=== PATIENT | male | born 1930 | race Asian ===

== ENCOUNTER 2017-05-31 16:18 | Inpatient (IN) | payer MEDICARE, OTHER ==
[~2017-05-31] VITALS: Ht 172.7 cm; Wt 67.5 kg
[~2017-05-31 16:18] MED LIST: AMLO-511 PO; DIVA500T35 PO; LISI-662 PO; MEMA5 PO; RISP1 PO
[2017-05-31 17:55] LABS: BASOPHILS % (AUTO) 0.7 % (0.0-2.0); EOSINOPHILS % (AUTO) 1.5 % (1.0-6.0); HEMATOCRIT 37.9 % (41-53); HEMOGLOBIN 12.7 g/dL (13.5-17.5); LYMPHOCYTES # (AUTO) 1.9 K/uL (1.0-4.8); LYMPHOCYTES % (AUTO) 29.5 % (22.0-44.0); MEAN CORPUSCULAR HEMOGLOBIN 30.2 pg (26.0-34.0); MEAN CORPUSCULAR HGB CONC 33.5 G/dL (31.0-37.0); MEAN CORPUSCULAR VOLUME 90 fL (80-100); MONOCYTES # (AUTO) 0.5 K/uL (0.1-1.0); MONOCYTES % (AUTO) 7.3 % (2.0-9.0); PLATELET COUNT (AUTO) 190 K/uL (150-450); RED CELL DISTRIBUTION WIDTH 15.2 % (11.5-14.5)
[2017-05-31 18:07] LABS: ALANINE AMINOTRANSFERASE 23 U/L (12-78); ALBUMIN 3.5 g/dL (3.4-5.0); ALKALINE PHOSPHATASE 95 U/L (46-116); ANION GAP 8 mmol/L (8-16); ASPARTATE AMINOTRANSFERASE 25 U/L (15-37); BILIRUBIN,TOTAL 1.5 mg/dL (0.1-1.0); CALCIUM, TOTAL 8.7 mg/dL (8.8-10.5); CARBON DIOXIDE 33 mmol/L (22-29); CHLORIDE 101 mmol/L (98-107); GLOMERULAR FILTR. RATE CALC 52 mL/min (>60); GLUCOSE,RANDOM 152 mg/dL (70-110); SODIUM SERUM 142 mmol/L (136-145); TOTAL PROTEIN, SERUM 7.8 g/dL (6.4-8.2); UREA NITROGEN, BLOOD 13 mg/dL (7-18)
[2017-05-31 18:08] LABS: POTASSIUM 2.9 mmol/L (3.5-5.1)
[2017-05-31 18:59] LABS: THYROID STIMULATING HORMONE 0.83 uIU/mL (0.36-3.74)
[2017-05-31 19:51] LABS: APPEARANCE,URINE CLEAR (CLEAR); BILIRUBIN,URINE NEGATIVE (NEGATIVE); GLUCOSE, URINE (UA) NEGATIVE (NEGATIVE); KETONES,URINE NEGATIVE (NEGATIVE); LEUKOCYTE ESTERASE ,URINE NEGATIVE (NEGATIVE); NITRATE,URINE NEGATIVE (NEGATIVE); OCCULT BLOOD,URINE NEGATIVE (NEGATIVE); PH,URINE 7.5 (5.0-8.0); PROTEIN,URINE SEE CONFIRM (NEGATIVE)
[2017-05-31 19:59] LABS: AMPHET/METH SCREEN,URINE NEGATIVE (NEGATIVE); BARBITURATE SCREEN, URINE NEGATIVE (NEGATIVE); BENZODIAZEPINES SCREEN,URINE NEGATIVE (NEGATIVE); CANNABINOID SCREEN,URINE NEGATIVE (NEGATIVE); COCAINE SCREEN,URINE NEGATIVE (NEGATIVE); METHADONE SCREEN, URINE NEGATIVE (NEGATIVE); OPIATE SCREEN,URINE NEGATIVE (NEGATIVE); PHENCYCLIDINE SCREEN,URINE NEGATIVE (NEGATIVE)
[2017-05-31 20:18] LABS: BACTERIA,URINE Few /HPF (None Seen); RBC,URINE 0-2 /HPF (0-2); SQUAMOUS EPITHELIAL CELL,UR Few /LPF (None Seen); SULFOSALICYLIC ACID,URINE 3+ (Negative)
[2017-05-31] MEDS ORDERED: POTASSIUM CHLORIDE 20 MEQ ER TABLET PO ONE (20:45)
[2017-05-31] MEDS ORDERED: CEPHALEXIN MONOHYDRATE 500 MG CAPSULE PO ONE (20:45)
[2017-05-31] MEDS ORDERED: CloNIDine HCL 0.1 MG TABLET PO ONE ×2 (21:00)
[2017-05-31 22:45] VITALS: BP 148/76
[2017-06-01] MEDS: DIVALPROEX SODIUM 500 MG DR TABLET PO SCH ×3 (00:45→20:42)
[2017-06-01] MEDS ORDERED: 0.9% SODIUM CHLORIDE 10 ML SYRINGE IVP PRN (01:00)
[2017-06-01] MEDS ORDERED: OxyCODONE HCL/ACETAMINOPHEN 5-325 MG TABLET PO PRN (01:00)
[2017-06-01] MEDS ORDERED: ONDANSETRON HCL 4 MG/2 ML VIAL IVP PRN (01:00)
[2017-06-01] MEDS ORDERED: SODIUM CHLORIDE 0.9% 500 ML IV ONE (02:01)
[2017-06-01] MEDS: DOCUSATE SODIUM 100 MG CAPSULE PO SCH ×3 (02:09→20:42)
[2017-06-01] MEDS: HEPARIN SODIUM,PORCINE 5,000 UNITS/ML VIAL SQ SCH ×3 (02:09→20:42)
[2017-06-01] MEDS: CefTRIAXone 1 GM/DEXTROSE 50 ML IV SCH (03:02)
[2017-06-01 04:42] VITALS: BP 159/73
[2017-06-01 07:45] VITALS: BP 165/69
[2017-06-01] MEDS: LISINOPRIL 20 MG TABLET PO SCH (08:29)
[2017-06-01] MEDS: PANTOPRAZOLE SODIUM 40 MG/VIAL IVP SCH (08:29)
[2017-06-01] MEDS ORDERED: AmLODIPine BESYLATE 5 MG TABLET PO SCH (09:00)
[2017-06-01 11:17] VITALS: BP 147/66
[2017-06-01 15:15] VITALS: BP 167/70
[2017-06-01 15:18] LABS: CALCIUM, TOTAL 8.4 mg/dL (8.8-10.5); CREATININE 1.43 mg/dL (0.60-1.30); POTASSIUM 3.2 mmol/L (3.5-5.1)
[2017-06-01] MEDS ORDERED: POTASSIUM CHL 10 MEQ/WATER 50 ML IV PRN ×2 (15:30)
[2017-06-01] MEDS: POTASSIUM CHLORIDE 20 MEQ ER TABLET PO PRN ×2 (16:29→22:32)
[2017-06-01 19:56] VITALS: BP 151/71
[2017-06-01] MEDS: MEMANTINE HCL 5 MG TABLET PO SCH (20:42)
[2017-06-01] MEDS: RisperiDONE 1 MG TABLET PO SCH (20:42)
[2017-06-01 23:10] VITALS: BP 151/71
[2017-06-02] MEDS: CefTRIAXone 1 GM/DEXTROSE 50 ML IV SCH (04:22)
[2017-06-02 05:38] VITALS: BP 149/69
[2017-06-02 07:05] LABS: BASOPHILS % (AUTO) 0.7 % (0.0-2.0); EOSINOPHILS % (AUTO) 2.8 % (1.0-6.0); HEMATOCRIT 36.1 % (41-53); LYMPHOCYTES # (AUTO) 2.6 K/uL (1.0-4.8); MEAN CORPUSCULAR HEMOGLOBIN 30.5 pg (26.0-34.0); MEAN CORPUSCULAR HGB CONC 33.3 G/dL (31.0-37.0); MEAN CORPUSCULAR VOLUME 92 fL (80-100); MONOCYTES # (AUTO) 0.5 K/uL (0.1-1.0); MONOCYTES % (AUTO) 8.1 % (2.0-9.0); NEUTROPHILS # (AUTO) 3.3 K/uL (1.8-7.7); NEUTROPHILS % (AUTO) 49.4 % (40.0-70.0); PLATELET COUNT (AUTO) 168 K/uL (150-450); RED BLOOD CELL COUNT(AUTO) 3.94 MIL/uL (4.50-5.90); RED CELL DISTRIBUTION WIDTH 15.2 % (11.5-14.5)
[2017-06-02 07:31] LABS: CALCIUM, TOTAL 8.4 mg/dL (8.8-10.5); CREATININE 1.17 mg/dL (0.60-1.30); POTASSIUM 3.6 mmol/L (3.5-5.1)
[2017-06-02 08:07] VITALS: BP 187/78
[2017-06-02] MEDS: LISINOPRIL 20 MG TABLET PO SCH (08:55)
[2017-06-02] MEDS: DIVALPROEX SODIUM 500 MG DR TABLET PO SCH ×2 (08:55→20:03)
[2017-06-02] MEDS: HEPARIN SODIUM,PORCINE 5,000 UNITS/ML VIAL SQ SCH ×2 (08:55→20:04)
[2017-06-02] MEDS: PANTOPRAZOLE SODIUM 40 MG/VIAL IVP SCH (08:55)
[2017-06-02] MEDS: AmLODIPine BESYLATE 10 MG TABLET PO SCH (08:55)
[2017-06-02] MEDS: DOCUSATE SODIUM 100 MG CAPSULE PO SCH ×2 (08:55→20:03)
[2017-06-02] MEDS ORDERED: AmLODIPine BESYLATE 5 MG TABLET PO SCH (09:00)
[2017-06-02 11:33] VITALS: BP 150/64
[2017-06-02 16:32] VITALS: BP 133/54
[2017-06-02] MEDS: MEMANTINE HCL 5 MG TABLET PO SCH (20:03)
[2017-06-02] MEDS: RisperiDONE 1 MG TABLET PO SCH (20:03)
[2017-06-02 20:14] VITALS: BP 150/71
[2017-06-02 23:22] VITALS: BP 165/78
[2017-06-03] MEDS: CefTRIAXone 1 GM/DEXTROSE 50 ML IV SCH (02:07)
[2017-06-03 05:12] VITALS: BP 167/83
[2017-06-03 07:40] VITALS: BP 152/63
[2017-06-03] MEDS: DIVALPROEX SODIUM 500 MG DR TABLET PO SCH ×2 (09:29→20:45)
[2017-06-03] MEDS: LISINOPRIL 20 MG TABLET PO SCH (09:30)
[2017-06-03] MEDS: HEPARIN SODIUM,PORCINE 5,000 UNITS/ML VIAL SQ SCH ×2 (09:30→20:45)
[2017-06-03] MEDS: AmLODIPine BESYLATE 10 MG TABLET PO SCH (09:30)
[2017-06-03] MEDS: DOCUSATE SODIUM 100 MG CAPSULE PO SCH ×2 (09:30→20:45)
[2017-06-03] MEDS: PANTOPRAZOLE SODIUM 40 MG/VIAL IVP SCH (09:30)
[2017-06-03] MEDS: HydrALAZINE HCL 25 MG TABLET PO SCH ×3 (09:30→20:45)
[2017-06-03 11:36] VITALS: BP 143/74
[2017-06-03] MEDS: OxyCODONE HCL/ACETAMINOPHEN 5-325 MG TABLET PO PRN (12:42)
[2017-06-03 15:48] VITALS: BP 150/65
[2017-06-03 19:39] VITALS: BP 143/67
[2017-06-03] MEDS: RisperiDONE 1 MG TABLET PO SCH (20:45)
[2017-06-03] MEDS: MEMANTINE HCL 5 MG TABLET PO SCH (20:45)
[2017-06-03 23:15] VITALS: BP 150/82
[2017-06-04] MEDS: CefTRIAXone 1 GM/DEXTROSE 50 ML IV SCH (02:18)
[2017-06-04 05:30] VITALS: BP 133/83
[2017-06-04 07:49] VITALS: BP 157/69
[2017-06-04] MEDS: LISINOPRIL 20 MG TABLET PO SCH (08:38)
[2017-06-04] MEDS: DOCUSATE SODIUM 100 MG CAPSULE PO SCH ×2 (08:38→20:17)
[2017-06-04] MEDS: OxyCODONE HCL/ACETAMINOPHEN 5-325 MG TABLET PO PRN (08:38)
[2017-06-04] MEDS: AmLODIPine BESYLATE 10 MG TABLET PO SCH (08:38)
[2017-06-04] MEDS: PANTOPRAZOLE SODIUM 40 MG/VIAL IVP SCH (08:39)
[2017-06-04] MEDS: HydrALAZINE HCL 25 MG TABLET PO SCH ×3 (08:39→23:15)
[2017-06-04] MEDS: DIVALPROEX SODIUM 500 MG DR TABLET PO SCH ×2 (08:39→20:17)
[2017-06-04] MEDS: HEPARIN SODIUM,PORCINE 5,000 UNITS/ML VIAL SQ SCH ×2 (08:39→20:17)
[2017-06-04 11:56] VITALS: BP 147/73
[2017-06-04 15:42] VITALS: BP 136/62
[2017-06-04 19:45] VITALS: BP 145/74
[2017-06-04] MEDS: RisperiDONE 1 MG TABLET PO SCH (20:17)
[2017-06-04] MEDS: MEMANTINE HCL 5 MG TABLET PO SCH (20:17)
[2017-06-04 23:00] VITALS: BP 133/75
[2017-06-05] MEDS: CefTRIAXone 1 GM/DEXTROSE 50 ML IV SCH (02:21)
[2017-06-05 03:05] VITALS: BP 158/67
[2017-06-05] MEDS: DIVALPROEX SODIUM 500 MG DR TABLET PO SCH (07:54)
[2017-06-05] MEDS: LISINOPRIL 20 MG TABLET PO SCH (07:54)
[2017-06-05] MEDS: HEPARIN SODIUM,PORCINE 5,000 UNITS/ML VIAL SQ SCH ×2 (07:55→08:02)
[2017-06-05] MEDS: PANTOPRAZOLE SODIUM 40 MG/VIAL IVP SCH ×2 (07:55→08:02)
[2017-06-05] MEDS: HydrALAZINE HCL 25 MG TABLET PO SCH ×2 (07:55→16:00)
[2017-06-05] MEDS: DOCUSATE SODIUM 100 MG CAPSULE PO SCH (07:55)
[2017-06-05] MEDS: AmLODIPine BESYLATE 10 MG TABLET PO SCH (07:55)
[2017-06-05 08:05] VITALS: BP 145/80
[2017-06-05] MEDS ORDERED: TRIAMCINOLONE 0.1% 15 GM CREAM TP PRN (09:45)
[2017-06-05 11:50] VITALS: BP 155/56
[2017-06-05] MEDS ORDERED: CEPH500 PO (15:24)
[2017-06-05] MEDS ORDERED: BACTDSB PO (15:24)
[2017-06-05] MEDS ORDERED: HYDR25TA84 PO (15:25)
[2017-06-05 15:35] VITALS: BP 108/59
== END 2017-06-05 18:24 | disposition home or self-care (01) | DRG 602 ==
LOC: EMS 16:23 → 6N 20:30
PROVIDERS: ADMIT Internal Medicine; ATTEND Internal Medicine
DX: L03.116 Cellulitis of left lower limb (principal); G93.41 Metabolic encephalopathy; F03.90 Unspecified dementia, unspecified severity, without behavioral disturbance, psychotic disturbance, mood disturbance, and anxiety; E87.6 Hypokalemia; I10 Essential (primary) hypertension; Z79.899 Other long term (current) drug therapy; F29 Unspecified psychosis not due to a substance or known physiological condition
CPT/HCPCS: 84132; 84443; 93005; 99285; C9113; G0480; J0696; J1644; J7040